=== PATIENT | female | born 1950 | race Caucasian/White ===

== ENCOUNTER 2016-12-19 10:21 | Emergency (ER) | payer OTHER ==
[~2016-12-19] VITALS: Ht 162.6 cm; Wt 72.6 kg
[2016-12-19] MEDS ORDERED: CRESTOR5 MG PO (10:53)
[2016-12-19] MEDS ORDERED: UNICOMPLEX M TA1 TA1 PO (10:53)
[2016-12-19] MEDS ORDERED: KEFLEX500 MG PO (11:51)
[2016-12-19] MEDS ORDERED: VIBRAMYCIN 100100 MG PO (11:52)
[2016-12-19 12:00] VITALS: BP 119/75
== END 2016-12-19 12:04 | disposition home or self-care (01) ==
LOC: ER 10:21
DX: L03.317 Cellulitis of buttock (principal)